=== PATIENT | male | born 1990 | race American Indian/Alaskan Native ===

== ENCOUNTER 2023-10-10 20:37 | Outpatient (REF) | payer MEDICAID, SELFPAY ==
[2023-10-10 21:38] LABS: ALT 39 U/L (16-63); AST 27 U/L (15-37); Albumin 4.4 g/dL (3.4-5.0); Alkaline Phosphatase 48 U/L (46-116); Anion Gap 7.9 mmol/L (3-11); BUN 18 mg/dL (7-18); Bilirubin, Total 1.3 mg/dL (0.2-1.0); CO2 27.1 mmol/L (21.0-32.0); Calcium 9.4 mg/dL (8.5-10.1); Chloride 104 mmol/L (98-107); Estimated GFR 100.66 (mL/min/1.73m2); Glucose 105 mg/dL (74-106); Potassium 3.6 mmol/L (3.5-5.1); Sodium 139 mmol/L (136-145); Total Protein 8.2 g/dL (6.4-8.2)
[2023-10-10 21:45] LABS: Hemoglobin A1C 5.9 % (<5.7)
== END 2023-10-10 20:38 | disposition home or self-care (01) ==
LOC: NCHCN 20:37
PROVIDERS: Visit Provider Nurse Practitioner Family
DX: E11.9 Type 2 diabetes mellitus without complications (principal); K70.0 Alcoholic fatty liver
CPT/HCPCS: 80053; 83036

== ENCOUNTER 2023-11-06 23:59 | Outpatient (REF) | payer MEDICAID, SELFPAY ==
[2023-11-07 13:51] LABS: COMMENT (LAB VIEW ONLY) 19.45 mg/dL; Microalb ug/mg Crea 17.5 ug/mg Cr
== END 2023-11-07 | disposition home or self-care (01) ==
LOC: NCHCN 23:59
PROVIDERS: PCP Physician Assistant; Visit Provider Physician Assistant
DX: E11.8 Type 2 diabetes mellitus with unspecified complications (principal)
CPT/HCPCS: 82043; 82570

== ENCOUNTER 2023-11-09 12:58 | Outpatient (REF) | payer MEDICAID, SELFPAY ==
[2023-11-09 20:39] LABS: Calculated LDL 59 mg/dL (<100); Cholesterol 114 mg/dL (<200); HDL Cholesterol 50 mg/dL (40-60); Triglyceride 25 mg/dL (<150)
== END 2023-11-09 12:59 | disposition home or self-care (01) ==
LOC: NCHCN 12:58
PROVIDERS: PCP Physician Assistant; Visit Provider Physician Assistant
DX: E11.8 Type 2 diabetes mellitus with unspecified complications (principal)
CPT/HCPCS: 80061

== ENCOUNTER 2024-12-02 14:31 | Outpatient (REF) | payer BC, SELFPAY ==
[2024-12-02 19:31] LABS: Abs Immature Grans 0.01 10^3/uL (0.0-0.06); Absolute Basophil Count 0.07 10^3/uL (0.0-0.2); Absolute Eosinophil Count 0.92 10^3/uL (0.0-0.7); Absolute Lymphocyte Count 1.94 10^3/uL (1.2-3.4); Absolute Monocyte Count 0.33 10^3/uL (0.1-0.8); Absolute Neutrophil Count 2.34 10^3/uL (1.2-6.7); Basophils % 1.2 %; Eosinophils % 16.4 %; HCT 44.3 % (40.0-50.0); HGB 15.1 g/dL (13.5-17.5); Immature Grans % 0.2 %; Lymphocytes % 34.6 %; MCH 29.8 pg (27.0-33.0); MCHC 34.1 % (32.0-36.0); MCV 87 fL (80-95); MPV 10.5 fL (8.0-11.0); Monocytes % 5.9 %; Neutrophils % 41.7 %; Platelet Count 244 10^3/uL (130-400); RBC 5.07 10^6/uL (4.36-5.78); RDW 12.2 % (11.8-14.1); RDW-SD 38.6 fL; WBC 5.61 10^3/uL (4.4-10.8)
[2024-12-02 19:49] LABS: COMMENT (LAB VIEW ONLY) 135.31 mg/dL; Microalb ug/mg Crea 6.8 ug/mg Cr
[2024-12-02 19:51] LABS: ALT 42 U/L (16-63); AST 24 U/L (15-37); Albumin 4.3 g/dL (3.4-5.0); Alkaline Phosphatase 61 U/L (46-116); Anion Gap 6.9 mmol/L (3-11); BUN 16 mg/dL (7-18); Bilirubin, Total 1.33 mg/dL (0.2-1.0); CO2 29.1 mmol/L (21.0-32.0); CREATININE 0.8 mg/dL (0.70-1.30); Calcium 9.1 mg/dL (8.5-10.1); Chloride 109 mmol/L (98-107); Estimated GFR 117.63 (mL/min/1.73m2); Glucose 96 mg/dL (74-106); Potassium 3.7 mmol/L (3.5-5.1); Sodium 145 mmol/L (136-145); Total Protein 7.9 g/dL (6.4-8.2)
[2024-12-03 19:05] LABS: HIV-1/2 Ag & Ab Screen Negative (Negative)
[2024-12-03 19:09] LABS: Hepatitis C Ab w Rflx HCV PCR Negative (Negative)
== END 2024-12-02 14:32 | disposition home or self-care (01) ==
LOC: NCHCN 14:31
PROVIDERS: PCP Physician Assistant; Visit Provider Physician Assistant
DX: K70.0 Alcoholic fatty liver (principal); Z11.59 Encounter for screening for other viral diseases; Z11.4 Encounter for screening for human immunodeficiency virus [HIV]
CPT/HCPCS: 80053; 86803; 87389; 82043; 82570; 85025